=== PATIENT | female | born 1980 | race African-American/Black ===

== ENCOUNTER 2017-01-09 05:21 | Day surgery (SDC) | payer OTHER ==
[~2017-01-09] VITALS: Ht 177.8 cm; Wt 104.3 kg
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
[~2017-01-09 05:21] MED LIST: IBUPROFEN 800800 M1 PO; TRINATE TABLET1 TAB PO
[2017-01-09 11:16] VITALS: BP 131/72
[2017-01-09 12:27] VITALS: BP 131/72
== END 2017-01-09 13:35 | disposition home or self-care (01) ==
LOC: TBA 05:21 → OR 05:21
DX: S73.192A Other sprain of left hip, initial encounter (principal); M25.852 Other specified joint disorders, left hip; M94.252 Chondromalacia, left hip; Z90.49 Acquired absence of other specified parts of digestive tract; Z88.8 Allergy status to other drugs, medicaments and biological substances; Z98.890 Other specified postprocedural states; V89.2XXA Person injured in unspecified motor-vehicle accident, traffic, initial encounter
CPT/HCPCS: 50010; 50101; 50386; 50612; 51538; 52298; 52304; 55430; 56524; 56527; 57092; 62110; 62900; 64043; 70005